=== PATIENT | male | born 1965 | race Caucasian/White ===

== ENCOUNTER 2018-10-04 11:48 | Outpatient (CLI) | payer BC ==
[2018-10-04 13:04] LABS: Hemoglobin 15.7 g/dL (14.0-18.0); Mean Corpuscular HGB CONC 33.6 g/dL (32.0-36.0); Mean Corpuscular Volume 95.2 fL (78.0-98.0); Mean Platelet Volume 6.8 fL (7.4-10.4); Platelet Count 275 thou/uL (130-400); RBC Distribution Width 11.5 % (11.5-14.5); Red Blood Cell (RBC) Count 4.91 mill/uL (4.70-6.10); White Blood Cell (WBC) Count 6.5 thou/uL (4.8-10.8)
[2018-10-04 13:10] LABS: INR-International Normal Ratio 2.1; Prothrombin Time 23.4 SEC (12.0-14.7)
[2018-10-04 13:28] LABS: Anion Gap 15 mmol/L (10-20); BUN (Urea Nitrogen) 14 mg/dL (8.4-25.7); Calc. Creatinine Clearance 0 mL/min (70-130); Calcium 9.3 mg/dL (7.8-10.44); Carbon Dioxide 22 mmol/L (22-29); Chloride 105 mmol/L (98-107); Estimated GFR-MDRD 73; Glucose 95 mg/dL (70-105); Potassium 4.3 mmol/L (3.5-5.1); Sodium 138 mmol/L (136-145)
== END 2018-10-04 11:49 | disposition home or self-care (01) ==
LOC: LABBT 11:48
PROVIDERS: ATTEND Internal Medicine Cardiovascular Disease
DX: Z01.818 Encounter for other preprocedural examination (principal); I48.91 Unspecified atrial fibrillation
CPT/HCPCS: 80048; 85027; 85610; 85730; 93005; 93010

== ENCOUNTER 2018-10-16 06:16 | Observation (INO) | payer BC ==
[2018-10-16] MEDS ORDERED: Heparin 10,000 UNITS/1 ML VIAL ONE ×3 (06:55→10:11)
[2018-10-16] MEDS ORDERED: Lidocaine 1% (PF) 30 ML VIAL ONE (06:55)
[2018-10-16] MEDS ORDERED: Fentanyl 100 MCG/2 ML VIAL ONE ×4 (07:19→15:09)
[2018-10-16] MEDS ORDERED: Midazolam HCl 2 mg/2 ml Vial ONE (07:19)
[2018-10-16] MEDS ORDERED: Isoproterenol 0.2 MG/1 ML AMP ONE (08:29)
[2018-10-16] MEDS ORDERED: Heparin 25,000 units/D5W 500 ML ONE (08:29)
[2018-10-16] MEDS ORDERED: Rocuronium Bromide 50 MG/5 ML VIAL ONE (10:15)
[2018-10-16] MEDS ORDERED: Promethazine HCl 25 MG/ML VIAL IM/IV PRN (12:00)
[2018-10-16] MEDS ORDERED: Ondansetron HCl/PF 4 MG/2 ML Vial IVP PRN (12:00)
[2018-10-16] MEDS ORDERED: Protamine Sulfate 50 MG/5 ML VIAL ONE (12:01)
--- NOTE | 2018-10-16 12:04 | OP ---
DATE OF PROCEDURE: 10/16/2018 PROCEDURES PERFORMED: Electrophysiology study and radiofrequency ablation. REASON FOR PROCEDURE: Mr. Up is a 53-year-old man with prior history of a paroxysmal atrial fibrillation and atrial flutter, who required Multaq and despite Multaq, breakthrough of atrial fibrillation episodes were observed, which were highly symptomatic. He is here for an EP study and radiofrequency ablation and pulmonary vein isolation procedure. DESCRIPTION OF PROCEDURE: The patient received general anesthesia by Anesthesia specialist. The left and right pulmonary veins were prepped, draped, and anesthetized using subcutaneous lidocaine. Under ultrasound guidance, both veins were cannulated x2. On left side, an 11-Serbian sheath was used to advance an intracardiac echocardiogram, probe was used to monitor any pericardial effusion as well as the transseptal procedure throughout the case. Also on the left side, SL1 sheath was used to advance a duodeca catheter into the right atrium and CS positions. On the right side, initially a two 8-Serbian sheaths were introduced through which a ThermoCool SFST catheter was advanced to the right atrium, where 3D map of the right atrium, CS and His bundle were delineated. Following that, an 8-Serbian sheaths were exchanged to 2 SL1 sheaths, which were used to perform a transseptal puncture after IV heparin administration, which was monitored and adjusted throughout the case to adjust for ACT over 350. Following that, the transseptal procedure was performed with Hamilton powered needle. Through these SL1 sheaths, a 20-pole Lasso catheter as well as a ThermoCool SFST catheter was advanced to the left atrium and 3D map of the left atrium as well as pulmonary venous isolation procedure of all 4 pulmonary veins were performed. The posterior wall was also isolated using a superior and inferior line. An esophageal temp probe was used throughout the case to avoid excessive heating of the esophagus. Following that, Isuprel was administered and any AV connections were re-ablated. The standard EP study was also performed at this point. LV pacing revealed no VA conduction with CS pacing. Antegrade Wenckebach cycle length was initially 330 milliseconds improving to 220 milliseconds with Isuprel. Baseline rhythm was sinus rhythm with cycle length of 755 milliseconds, AZ 136 milliseconds, QRS 101 milliseconds, QT 360 milliseconds, AH was 78 milliseconds, and HV 54 milliseconds. Sinus node recovery time was 1160. Corrected sinus node recovery time was 405 milliseconds. AV ERP was 600/220 milliseconds. No dual AV dora physiology was observed. The burst atrial pacing around the Wenckebach as well as at the lower cycle length did not induce any atrial arrhythmias. Very short nonsustained typical atrial flutter was seen only, which was always self terminating. At this point, catheters were pulled to the right side and out of the body. The sheaths were exchanged for short sheaths and basket closure was performed on all 4 femoral vein access sites. Prior to removing the ICE catheter, it demonstrated no significant change in the pericardial space with minor fat pad observer. Cine gram of the JUAN view was reviewed. No significant change in cardiac silhouette. Total number of lesions delivered 42 at total duration 28 and 48 milliseconds at 40 munson. CONCLUSION: 1. Successful isolation of all 4 pulmonary veins. 2. Posterior wall isolation performed as well. 3. Only nonsustained atrial flutter noted possibly isthmus dependent. 4. Normal AV dora function. No evidence of accessory pathway seen. 5. No inducible SVT or sustained atrial flutter is seen. 6. No evidence of dual AV node physiology. 7. Borderline sinus node function. PLAN: Continue monitoring recurrent arrhythmia and resume oral anticoagulation. Job ID: [id number]
[2018-10-16] MEDS ORDERED: Non-Formulary Medication 1 EACH PO PRN (15:21)
[2018-10-16] MEDS ORDERED: Heparin 30,000 units/30 ml VIAL ONE (16:59)
[2018-10-16] MEDS ORDERED: PHENYLEPHRINE-NS 100 MCG/ML 10 ML SYRINGE ONE (16:59)
[2018-10-16] MEDS ORDERED: Dexamethasone 20 MG/5 ML VIAL ONE (16:59)
[2018-10-16] MEDS ORDERED: Glycopyrrolate 0.2 MG/ML 5 ML SYRINGE ONE (16:59)
[2018-10-16] MEDS ORDERED: Vecuronium 10 MG VIAL ONE (16:59)
[2018-10-16] MEDS ORDERED: PROPOFOL 200 MG/20 ML VIAL ONE (16:59)
[2018-10-16] MEDS ORDERED: Lidocaine 1% PF 5 ML VIAL ONE (16:59)
[2018-10-16] MEDS ORDERED: Ondansetron PF 4 MG/2 ML Vial ONE (16:59)
[2018-10-16] MEDS ORDERED: Rocuronium Bromide 10 MG/ML (10ML VIAL) ONE (16:59)
[2018-10-16 18:32] VITALS: BMI 32.9
[2018-10-16] MEDS ORDERED: Atorvastatin Calcium 10 MG TAB PO SCH (21:00)
[2018-10-16] MEDS ORDERED: Rivaroxaban 10 MG TAB PO SCH (21:00)
[2018-10-17 03:55] VITALS: TEMP 97.5
[2018-10-17] MEDS ORDERED: Losartan 25 MG TAB PO SCH (09:00)
[2018-10-17] MEDS ORDERED: Escitalopram Oxalate 10 mg Tablet PO SCH (09:00)
[2018-10-17] MEDS ORDERED: Ubidecarenone 50 MG CAP PO SCH (09:00)
[2018-10-17 09:35] VITALS: BP 135/68
--- NOTE | 2018-10-17 11:39 | EKG ---
Test Reason : POST ABLATION Blood Pressure : / mmHG Vent. Rate : 094 BPM Atrial Rate : 094 BPM P-R Int : 158 ms QRS Dur : 092 ms QT Int : 372 ms P-R-T Axes : 060 -11 045 degrees QTc Int : 465 ms Normal sinus rhythm ST elevation, consider early repolarization, pericarditis, or injury Abnormal ECG Confirmed by CHANG ROGERS ([id number]) on 10/17/2018 11:38:50 AM Referred By: KRIS Confirmed By:CHANG ROGERS
--- NOTE | 2018-10-17 16:14 | EKG ---
Test Reason : Blood Pressure : / mmHG Vent. Rate : 091 BPM Atrial Rate : 091 BPM P-R Int : 168 ms QRS Dur : 096 ms QT Int : 370 ms P-R-T Axes : 059 -06 041 degrees QTc Int : 455 ms Normal sinus rhythm ST elevation, consider early repolarization, pericarditis, or injury Abnormal ECG Confirmed by CHANG ROGERS ([id number]) on 10/17/2018 4:14:22 PM Referred By: KRIS Confirmed By:CHANG ROGERS
--- NOTE | 2018-10-18 06:12 | DIS ---
DATE OF ADMISSION: 10/16/2018 DATE OF DISCHARGE: 10/17/2018 ADMISSION DIAGNOSES: 1. Paroxysmal atrial fibrillation/flutter. 2. Status post elective pulmonary venous isolation procedure on 10/16/2018 isolating all 4 pulmonary veins and the posterior wall. Total number of ablation was 28 minutes and 48 seconds. SUBJECTIVE: Mr. Up seems to be doing well one day after he has a pulmonary venous isolation procedure. No bleeding from groin is noted. He has minimal chest fullness sensation without dyspnea or pain. He has no PND or orthopnea. No stroke-like symptoms. No bleeding issues. OBJECTIVE: VITAL SIGNS: Blood pressure 135/68, heart rate 92, respiratory rate 16, and temperature 97.5 degrees Fahrenheit. GENERAL: He is alert and oriented man, in no apparent distress. NECK: Veins not distended. CHEST: Coarse. No crackles. HEART: Sounds are regular to rate and rhythm. No murmur or gallop or rub is appreciated. ABDOMEN: Benign. Bowel sounds are positive. Groin sites without reaction. EXTREMITIES: Lower extremities without edema. DATABASE: Telemetry strips reviewed revealing sinus rhythm, no recurrent abnormalities. LABORATORY DATA: None new. ASSESSMENT: Mr. Up is a pleasant 53-year-old man with history of paroxysmal atrial fibrillation/flutter despite Multaq use. He underwent pulmonary venous isolation procedure yesterday including posterior wall ablation as well. He is maintaining sinus rhythm and appears to be stable for discharge. PLAN: Discharge him home on the current medications including Lipitor, coenzyme Q10, Lexapro, Cozaar, Xarelto. He was advised to stop Multaq unless recurrent atrial fibrillation is seen and he was given prescriptions for Carafate and also advised to take Nexium as before. Lasix and potassium was also given as needed. He was advised to follow up in our office in 6 weeks. He will have to call earlier if symptoms dictate. Job ID: [id number]
== END 2018-10-17 10:34 | disposition home or self-care (01) ==
LOC: CCL 06:16 → 2SW 18:05
PROVIDERS: ADMIT Internal Medicine Cardiovascular Disease; ATTEND Internal Medicine Cardiovascular Disease
PROC: 4A023FZ Measurement of Cardiac Rhythm, Percutaneous Approach (ICD-10-PCS; principal; 2018-10-17)
PROC: 4A0234Z Measurement of Cardiac Electrical Activity, Percutaneous Approach (ICD-10-PCS; 2018-10-17)
PROC: 02583ZZ Destruction of Conduction Mechanism, Percutaneous Approach (ICD-10-PCS; 2018-10-17)
PROC: 02K83ZZ Map Conduction Mechanism, Percutaneous Approach (ICD-10-PCS; 2018-10-17)
DX: I48.0 Paroxysmal atrial fibrillation (principal); I48.92 Unspecified atrial flutter; K21.9 Gastro-esophageal reflux disease without esophagitis; I10 Essential (primary) hypertension; E78.5 Hyperlipidemia, unspecified; Z88.8 Allergy status to other drugs, medicaments and biological substances; Z79.01 Long term (current) use of anticoagulants; Z79.899 Other long term (current) drug therapy
CPT/HCPCS: 76942; 85347; 93005; 93010; 93613; 93622; 93623; 93656; 93662; C1732; C1759; C1769; G0378; J1100; J1644; J2001; J2250; J2405; J2704; J2720; J3010

== ENCOUNTER → 2018-11-07 | Day surgery (SDC) | payer BC ==
[2018-11-06 14:53] VITALS: BMI 30.9
== END ==
LOC: CCL 05:47
PROVIDERS: ATTEND Internal Medicine Cardiovascular Disease
DX: I48.92 Unspecified atrial flutter (principal); Z53.9 Procedure and treatment not carried out, unspecified reason

== ENCOUNTER 2018-11-15 09:48 | Day surgery (SDC) | payer BC ==
[2018-11-14 12:10] VITALS: BMI 30.4
[2018-11-15 10:47] LABS: #Basophils 0.1 thou/uL (0.0-0.2); #Eosinphils 0.2 thou/uL (0.0-0.7); #Lymphocytes 1.3 thou/uL (1.20-3.40); #Monocytes 0.5 thou/uL (0.11-0.59); #Neutrophils 5.7 thou/uL (1.40-6.50); %Basophils 0.9 % (0.0-1.0); %Eosinophils 2.2 % (0.0-10.0); %Lymphocytes 16.5 % (21.0-51.0); %Monocytes 6.7 % (0.0-10.0); %Neutrophils 73.8 % (42.0-75.0); Hemoglobin 16.3 g/dL (14.0-18.0); Mean Corpuscular HGB CONC 33.9 g/dL (32.0-36.0); Mean Corpuscular Hemoglobin 31.7 pg (27.0-31.0); Mean Corpuscular Volume 93.4 fL (78.0-98.0); Mean Platelet Volume 7.2 fL (7.4-10.4); Platelet Count 268 thou/uL (130-400); Red Blood Cell (RBC) Count 5.16 mill/uL (4.70-6.10); White Blood Cell (WBC) Count 7.8 thou/uL (4.8-10.8)
[2018-11-15 10:54] LABS: INR-International Normal Ratio 1.4; Prothrombin Time 17.4 SEC (12.0-14.7)
[2018-11-15] MEDS ORDERED: PROPOFOL 20 ML ONE ×2 (11:10→11:54)
[2018-11-15 11:18] LABS: Anion Gap 15 mmol/L (10-20); BUN (Urea Nitrogen) 15 mg/dL (8.4-25.7); Calc. Creatinine Clearance 131 mL/min (70-130); Calcium 9.6 mg/dL (7.8-10.44); Carbon Dioxide 21 mmol/L (22-29); Chloride 106 mmol/L (98-107); Estimated GFR-MDRD 68; Glucose 134 mg/dL (70-105); Potassium 3.8 mmol/L (3.5-5.1); Sodium 138 mmol/L (136-145)
[2018-11-15] MEDS ORDERED: Metoprolol Tartrate 5 MG/5 ML VIAL ONE (12:53)
[2018-11-15] MEDS ORDERED: Metoprolol Tartrate 5 MG/5 ML VIAL IVP SCH (13:15)
--- NOTE | 2018-11-15 13:27 | OP ---
DATE OF PROCEDURE: 11/15/2018 REASON FOR PROCEDURE: Mr. Up is a 53-year-old man with prior history of paroxysmal atrial fibrillation with pulmonary venous antral isolation on 2018, now with recurrent atrial arrhythmias with atypical atrial flutter early post ablation. He is here for a cardioversion. He has been started on propafenone therapy and also on chronic anticoagulation, Xarelto. DESCRIPTION OF PROCEDURE: The patient received propofol by Anesthesia specialist. After adequate level of sedation achieved, a 70 joule synchronized shock promptly converted the patient back to sinus rhythm. Within a minute, recurrent Atrial flutter was seen with 2:1 AV conduction. Cardioversion repeated, but Atrial flutter recurred. 5mg IV lopressor is given. CONCLUSION: Successful cardioversion, but early recurrence of atrial flutter is seen. PLAN: Continue loading propafenone SR 325mg BID, and after adequate loading in a 5 days repeat cardioversion is planned. We will add metoprolol succinate 25 mg daily for improved rate control. Job ID: [id number] [facility]
--- NOTE | 2018-11-15 16:31 | EKG ---
Test Reason : PREOP CARDIOVERSION Blood Pressure : / mmHG Vent. Rate : 114 BPM Atrial Rate : 114 BPM P-R Int : 182 ms QRS Dur : 126 ms QT Int : 334 ms P-R-T Axes : 045 -11 014 degrees QTc Int : 460 ms Sinus tachycardia Non-specific intra-ventricular conduction block ST elevation consider lateral injury or acute infarct * ACUTE DE * Abnormal ECG When compared with ECG of 17-OCT-2018 07:28, QRS duration has increased ST elevation now present in Anterior leads Confirmed by YURI GUTIERREZ, DR. Pearl ([id number]) on 11/15/2018 4:30:58 PM Referred By: [facility] Confirmed By:DR. Ryanne WELCH MD
== END 2018-11-15 13:55 | disposition home or self-care (01) ==
LOC: CCL 09:48
PROVIDERS: ATTEND Internal Medicine Cardiovascular Disease
PROC: 5A2204Z Restoration of Cardiac Rhythm, Single (ICD-10-PCS; principal; 2018-11-15)
DX: I48.4 Atypical atrial flutter (principal); I48.0 Paroxysmal atrial fibrillation; I10 Essential (primary) hypertension; E78.5 Hyperlipidemia, unspecified; K21.9 Gastro-esophageal reflux disease without esophagitis; Z79.01 Long term (current) use of anticoagulants; Z79.899 Other long term (current) drug therapy; Z88.8 Allergy status to other drugs, medicaments and biological substances
CPT/HCPCS: 80048; 84484; 85025; 85610; 85730; 92960; 93005; 93010; J2704